=== PATIENT | male | born 2000 | race Caucasian/White ===

== ENCOUNTER 2021-03-21 08:51 | Emergency (ER) | payer OTHER ==
[2021-03-21] MEDS ORDERED: KEFLEX250 MG PO (10:15)
[2021-03-21] MEDS ORDERED: NORCO 5-325 TA1 EACH PO (10:15)
== END 2021-03-21 10:25 | disposition home or self-care (01) ==
LOC: FER 08:51
DX: S92.512A Displaced fracture of proximal phalanx of left lesser toe(s), initial encounter for closed fracture (principal); W20.8XXA Other cause of strike by thrown, projected or falling object, initial encounter
CPT/HCPCS: 73630